=== PATIENT | male | born 1995 | race Caucasian/White ===

== ENCOUNTER 2016-09-18 08:52 | Emergency (ER) | payer OTHER ==
[2016-09-18 08:58] VITALS: TEMP 97.5; O2SAT 98
--- NOTE | 2016-09-18 09:12 | EDPHY ---
H & P Stated Complaint: chin/nausea since 399 Source: Patient Exam Limitations: No limitations - Personal History Current Tetanus/Diphtheria Vaccine: Yes - Medical/Surgical History Hx Asthma: No Hx Chronic Respiratory Disease: No Hx Diabetes: No Hx Cardiac Disease: No Hx Renal Disease: No Hx Cirrhosis: No Hx Alcoholism: No Hx HIV/AIDS: No Hx Splenectomy or Spleen Trauma: No Other PMH: denies - Social History Smoking Status: Never smoked Time Seen by Provider: 09/18/16 09:06 HPI/ROS: CHIEF COMPLAINT: headache HISTORY OF PRESENT ILLNESS: 20-year-old male presents emergency department complaining of a frontal headache that woke him up from sleeping at 4:00 a.m.. Patient reports his headache is throbbing in nature, 7/10, behind his forehead and eyes. Patient reports nausea, 1 episode of emesis. He denies fevers. No recent cough or cold, no recent sick contacts. He denies abdominal pain, no diarrhea. Patient denies confusion, blurred vision. He does report photophobia. Patient reports he drank alcohol heavily 2 nights ago, yesterday he worked. He denies trauma. No neck pain. Patient reports he smokes marijuana daily, denies other drug use. REVIEW OF SYSTEMS: A comprehensive 10 point review of systems is otherwise negative aside from elements mentioned in the history of present illness. (Teri Jacob) - Physical Exam Exam: Physical Exam Gen: Alert and Oriented, NAD HEENT: PERRL, moist mucous membranes NECK: no meningismus CV: regular rate and regular rhythm PULM: CTAB, no wheezes ABDOMEN: soft, non tender to palpation, BS present BACK: No CVA tenderness NEURO: Neurologically grossly intact, normal cerebellar exam EXTREMITIES: normal appearing SKIN: no rash or break in skin on exposed skin PSYCH: answers questions appropriately. (Teri Jacob) Constitutional: Initial Vital Signs Temperature (C) 36.4 C 09/18/16 08:56 Heart Rate 74 09/18/16 08:56 Respiratory Rate 20 09/18/16 08:56 Blood Pressure 125/71 H 09/18/16 08:56 O2 Sat (%) 98 09/18/16 08:56 O2 Delivery Mode Room Air Allergies/Adverse Reactions: No Known Allergies Allergy (Unverified 09/18/16 08:55) Home Medications: Medication Instructions Recorded Adderall 10 MG (*) 09/18/16 Viibryd 09/18/16 Medical Decision Making - Diagnostics Imaging: Discussed imaging studies w/ manager call Radiologist - Diagnostics Imaging Results: Imaging Impressions Head CT 09/18/16 09:19 Impression: 1. Benign arachnoid cyst of posterior fossa incidentally noted. 2. Otherwise, normal noncontrast CT brain. 3. No subarachnoid hemorrhage or epidural/subdural hematomas. 4. No sinusitis. 5.Consider MRI of the brain without and with contrast enhancement, if there is continued clinical concern. Findings and recommendations discussed with Emergency Department, Teri Jacob NP at 1001 hours, September 18, 2016. Final report concurs with initial preliminary interpretation. Brain MRI 09/18/16 12:52 Impression: 1. Limited due to patient motion artifact. 2. Benign posterior fossa arachnoid cyst. 3. No acute infarct, acute hemorrhage, hydrocephalus or mass effect. 4. No definite enhancing lesions. Findings and recommendations discussed with Emergency Department physician, Teri Jacob NP at 1445 hours, on September 18, 2016. Final report concurs with initial preliminary interpretation. Procedures: Procedure: Lumbar puncture. Indication: Headache, leukocytosis After verbal informed consent from patient explaining the risks including infection, bleeding, and neurologic damage, a lumbar puncture was performed after the patient was prepped and draped in the usual fashion. The back was anesthetized with 1% lidocaine. Approximately 4 cc of clear fluid was obtained. Opening pressure was not obtained. There were no complications. The procedure was performed by myself. (aFheem Sherman) ED Course/Re-evaluation: IV established, CBC, chemistry panel, CT brain and urinalysis have been ordered. I have ordered Tylenol, Toradol, Benadryl. Patient reports his headache is down to a 5/10 from an 8/10 after the Tylenol, Toradol and Benadryl. [place] [address] with a left shift. My supervising physician Dr. Sherman will perform a lumbar puncture. Patient is anxious when uses the risks and benefits were discussed, he has spoken with his mother and agrees to proceed. Pt is given 1mg of lorazepam IV. 1pm- I have consulted with Dr. Jacobs with Neurology about the CSF results and protein level that is elevated at 155 no white cells. He is recommending a MRI brain with and without contrast, if this is normal he recommends discharged home with NSAID instructions and follow-up in office. Patient is re-evaluated, his headache is a 3/10, worse with movement of his head. When sleeping his heart rate is 80 immediately when aroused his heart rate increases to 150. Patient reports he drank 2 L of alcohol on Sunday night which is 2 nights ago , he reports smoking marijuana daily, denies other drug use. I have spoken with him about the MRIs, he agrees to proceed. MRI brain with and without contrast with no acute abnormality to explain his headache. Patient's headache is resolved. He reports he would like to be discharged home, he is appreciative of our help. I have given him instructions to take 600 mg of ibuprofen every 8 hours with food for 5 days. He agrees to follow up with the neurologist. He will call to schedule this appointment. He is given strict return precautions for any worsening symptoms, fevers, new symptoms or concerns. (Teri Jacob) Differential Diagnosis: The differential diagnosis for the patient's headache included but was not limited to subarachnoid hemorrhage, migraine headache, tension headache and infectious causes such as meningitis, pharyngitis and sinusitis. (Teri Jacob) - Data Points Laboratory Results: Laboratory Results 09/18/16 09:52 09/18/16 09:52 09/18/16 09/18/16 09/18/16 11:18 09:52 09:52 WBC RBC Hgb Hct MCV MCH MCHC RDW Plt Count MPV Neut % (Auto) Lymph % (Auto) [place] % (Auto) Eos % (Auto) Baso % (Auto) Nucleat RBC Rel Count Absolute Neuts (auto) Absolute Lymphs (auto) Absolute Monos (auto) Absolute Eos (auto) Absolute Basos (auto) Absolute Nucleated RBC Immature Gran % Immature Gran # Sodium 139 mEq/L mEq/L (134-144) Potassium 3.8 mEq/L mEq/L (3.5-5.2) Chloride 102 mEq/L mEq/L (97-110) Carbon Dioxide 25 mEq/l mEq/l (22-31) Anion Gap 12 mEq/L mEq/L (8-16) BUN 10 mg/dL mg/dL (7-23) Creatinine 0.8 mg/dL mg/dL (0.7-1.3) Estimated GFR > 60 Glucose 113 mg/dL H mg/dL (70-100) Calcium 9.9 mg/dL mg/dL (8.5-10.4) Urine Color YELLOW Urine Appearance HAZY Urine pH 6.0 (5.0-7.5) Ur Specific [place] 1.021 (1.002-1.030) Urine Protein 1+ H (NEGATIVE) Urine Ketones 2+ H (NEGATIVE) Urine Blood NEGATIVE (NEGATIVE) Urine Nitrate NEGATIVE (NEGATIVE) Urine Bilirubin NEGATIVE (NEGATIVE) Urine Urobilinogen NEGATIVE EU EU (0.2-1.0) Ur Leukocyte Esterase NEGATIVE (NEGATIVE) Urine RBC 1-3 /hpf /hpf (0-3) Urine WBC 1-3 /hpf /hpf (0-3) Ur Epithelial Cells Not Reported Urine Mucus TRACE /lpf /lpf (NONE-1+) Urine Glucose NEGATIVE (NEGATIVE) CSF Tube Number 3 CSF Appearance CLEAR (CLEAR) CSF Color COLORLESS (COLORLESS) CSF Supernatant Not Reported CSF WBC 0 /mm3 /mm3 (0-5) CSF RBC 33 /mm3 H /mm3 (0-0) CSF Glucose 62 mg/dL mg/dL (50-75) CSF Total Protein 155 mg/dL H mg/dL (12-60) 09/18/16 09:52 WBC 15.57 10^3/uL H 10^3/uL (3.80-9.50) RBC 4.50 10^6/uL 10^6/uL (4.40-6.38) Hgb 14.0 g/dL g/dL (13.7-17.5) Hct 40.0 % % (40.0-51.0) MCV 88.9 fL fL (81.5-99.8) MCH 31.1 pg pg (27.9-34.1) MCHC 35.0 g/dL g/dL (32.4-36.7) RDW 12.1 % % (11.5-15.2) Plt Count 294 10^3/uL 10^3/uL (150-400) MPV 9.3 fL fL (8.7-11.7) Neut % (Auto) 86.6 % H % (39.3-74.2) Lymph % (Auto) 7.7 % L % (15.0-45.0) [place] % (Auto) 4.8 % % (4.5-13.0) Eos % (Auto) 0.1 % L % (0.6-7.6) Baso % (Auto) 0.2 % L % (0.3-1.7) Nucleat RBC Rel Count 0.0 % % (0.0-0.2) Absolute Neuts (auto) 13.48 10^3/uL H 10^3/uL (1.70-6.50) Absolute Lymphs (auto) 1.20 10^3/uL 10^3/uL (1.00-3.00) Absolute Monos (auto) 0.74 10^3/uL 10^3/uL (0.30-0.80) Absolute Eos (auto) 0.02 10^3/uL L 10^3/uL (0.03-0.40) Absolute Basos (auto) 0.03 10^3/uL 10^3/uL (0.02-0.10) Absolute Nucleated RBC 0.00 10^3/uL 10^3/uL (0-0.01) Immature Gran % 0.6 % % (0.0-1.1) Immature Gran # 0.10 10^3/uL 10^3/uL (0.00-0.10) Sodium Potassium Chloride Carbon Dioxide Anion Gap BUN Creatinine Estimated GFR Glucose Calcium Urine Color Urine Appearance Urine pH Ur Specific [place] Urine Protein Urine Ketones Urine Blood Urine Nitrate Urine Bilirubin Urine Urobilinogen Ur Leukocyte Esterase Urine RBC Urine WBC Ur Epithelial Cells Urine Mucus Urine Glucose CSF Tube Number CSF Appearance CSF Color CSF Supernatant CSF WBC CSF RBC CSF Glucose CSF Total Protein Microbiology Results: MICROBIOLOGY 09/18/16 11:18 Cerebral Spinal Fluid Gram Stain - Final Medications Given: Discontinued Medications Acetaminophen (Tylenol) 650 mg PO EDNOW ONE Stop: 09/18/16 09:21 Last Admin: 09/18/16 09:57 Dose: 650 mg Diphenhydramine HCl (Benadryl Injection) 25 mg IVP EDNOW ONE Stop: 09/18/16 09:19 Last Admin: 09/18/16 09:57 Dose: 25 mg Sodium Chloride (Ns) 1,000 mls @ 0 mls/hr IV ONCE ONE PRN Reason: Wide Open Stop: 09/18/16 09:19 Last Admin: 09/18/16 09:58 Dose: 1,000 mls Ketorolac Tromethamine (Toradol) 30 mg IVP EDNOW ONE Stop: 09/18/16 09:19 Last Admin: 09/18/16 09:57 Dose: 30 mg Lorazepam (Ativan Injection) 1 mg IVP EDNOW ONE Stop: 09/18/16 10:33 Last Admin: 09/18/16 10:42 Dose: 1 mg Lorazepam (Ativan Injection) 1 mg IVP EDNOW ONE Stop: 09/18/16 13:31 Last Admin: 09/18/16 13:30 Dose: 1 mg Departure - Departure Disposition: Home, Routine, Self-Care Clinical Impression: Headache Qualifiers: Headache type: unspecified Headache chronicity pattern: acute headache Intractability: not intractable Qualified Code(s): R51 - Headache Condition: Good Instructions: Acute Headache (ED) Additional Instructions: Take 600 mg of ibuprofen every 8 hours with food for 5 days. Follow up with the neurologist at 1st available appointment, call today to schedule this appointment. Drink plenty of fluids. Stop drinking alcohol. Return to the emergency department for worsening symptoms, new symptoms, fevers, worsening headache, or any other concerns. Referrals: Robin Jacobs DO [Doctor of Osteopathy] - As per Instructions (Neurologist almond pan finisher)
[2016-09-18] MEDS ORDERED: NS 1,000 ML IV ONE (09:18)
[2016-09-18] MEDS ORDERED: KETOROLAC 30 MG/1 ML SDV IVP ONE (09:18)
[2016-09-18] MEDS ORDERED: ACETAMINOPHEN 325 MG TAB PO ONE (09:20)
[2016-09-18 09:58] LABS: % IMMATURE GRANULYOCYTES 0.6 % (0.0-1.1); ADD DIFF? NO; ADD MORPH? NO; ADD SCAN? NO; ATYPICAL LYMPHOCYTE FLAG 0 (0-99); FRAGMENT RBC FLAG 20 (0-99); LEFT SHIFT FLG 0 (0-99); LIPEMIA HEMOLYSIS FLAG 90 (0-99); MEAN CELL HEMOGLOBIN 31.1 pg (27.9-34.1); MEAN CELL VOLUME 88.9 fL (81.5-99.8); MEAN PLATELET VOLUME 9.3 fL (8.7-11.7); PLATELET CLUMPS FLAG 10 (0-99); PLATELET COUNT 294 10^3/uL (150-400); RED CELL DISTRIBUTION WIDTH 12.1 % (11.5-15.2)
[2016-09-18 10:01] LABS: COLOR YELLOW; LEUKOCYTE ESTERASE,URINE NEGATIVE (NEGATIVE); NITRITE,URINE NEGATIVE (NEGATIVE)
[2016-09-18 10:08] LABS: MUCUS TRACE /lpf (NONE-1+)
[2016-09-18 10:11] LABS: ANION GAP 12 mEq/L (8-16); CALCIUM 9.9 mg/dL (8.5-10.4); CARBON DIOXIDE 25 mEq/l (22-31); CHLORIDE 102 mEq/L (97-110); CREATININE 0.8 mg/dL (0.7-1.3); GLOMERULAR FILTRATION RATE > 60; GLUCOSE 113 mg/dL (70-100); POTASSIUM 3.8 mEq/L (3.5-5.2); SODIUM 139 mEq/L (134-144)
[2016-09-18] MEDS ORDERED: LORazepam 2 MG/ML INJ IVP ONE ×2 (10:32→13:30)
[2016-09-18 11:51] LABS: CSF APPEARANCE CLEAR (CLEAR); CSF COLOR COLORLESS (COLORLESS); WBC, CSF 0 /mm3 (0-5)
[2016-09-18 12:03] LABS: PROTEIN, CSF 155 mg/dL (12-60)
[2016-09-18 12:05] VITALS: RESP 16
[2016-09-18] MEDS ORDERED: GADOBUTROL 10 ML VIAL IVP ONE (13:23)
[2016-09-18] MEDS ORDERED: LORazepam 2 MG/ML INJ ONE (13:28)
[2016-09-18 15:20] VITALS: BP 135/74; PULSE 91
== END 2016-09-18 15:00 | disposition home or self-care (01) ==
PROC: 009U4ZX Drainage of Spinal Canal, Percutaneous Endoscopic Approach, Diagnostic (ICD-10-PCS; principal; 2016-09-18)
DX: R51 Headache (principal)
CPT/HCPCS: 96374; A9585; J1200; J1885; J2060